=== PATIENT | female | born 1980 | race Caucasian/White ===

== ENCOUNTER 2018-04-19 10:25 | Day surgery (SDC) | payer OTHER ==
[~2018-04-19 10:25] MED LIST: CEFAZOLIN 1 GM INJ; DEXAMETHASONE 4 MG/ML 1 ML INJ; FENTAnyl 50 MCG/ML VIAL; LIDOCAINE 2% (SDV) 5 ML INJ; METOCLOPRAMIDE 10 MG INJ; MIDAZOLAM 1 MG/ML 2 ML INJ; ONDANSETRON 4 MG INJ; PROPOFOL 20 ML; ROCURONIUM 50 MG INJ; SUCCINYLCHOLINE CHLORIDE 100 MG/5 ML SYG IV; SUGAMMADEX SODIUM 200 MG/2 ML VIAL IV
[2018-04-19] MEDS ORDERED: BUPIVACAINE 0.25%/EPI (MDV) 50 ML VIAL INJ (12:17)
[2018-04-19] MEDS ORDERED: HYDROmorphONE 1 MG/5 ML IV SYRINGE IV (13:30)
[2018-04-19] MEDS ORDERED: DIPHENHYDRAMINE 50 MG INJ IV (13:30)
[2018-04-19] MEDS ORDERED: FENTAnyl 50 MCG/ML VIAL IV ×2 (13:30)
[2018-04-19] MEDS ORDERED: ONDANSETRON 4 MG INJ IV (13:30)
[2018-04-19] MEDS ORDERED: KETOROLAC 30 MG INJ (14:26)
[2018-04-19] MEDS: MEPERIDINE 25 MG INJ IV (14:53)
[2018-04-19] MEDS: HYDROmorphONE 1 MG/5 ML IV SYRINGE IV ×3 (14:56→16:07)
[2018-04-19] MEDS: KETOROLAC 30 MG INJ IV (15:21)
[2018-04-19] MEDS ORDERED: BUTORPHANOL 2 MG INJ IV (16:30)
[2018-04-19] MEDS: OXYCODONE/ACETAMINOPHEN (5/325) TAB PO (17:23)
== END 2018-04-19 18:24 | disposition home or self-care (01) ==
LOC: SDS 10:25
DX: Z30.2 Encounter for sterilization (principal); E66.9 Obesity, unspecified; Z68.36 Body mass index [BMI] 36.0-36.9, adult
CPT/HCPCS: 58670; 88302